=== PATIENT | female | born 1995 | race American Indian/Alaskan Native ===

== ENCOUNTER 2017-12-11 03:55 | Emergency (ER) | payer BC | END 2017-12-11 05:00 | disposition left against medical advice (07) | LOC: ED 03:55 | DX: R10.9 Unspecified abdominal pain (principal); Z53.21 Procedure and treatment not carried out due to patient leaving prior to being seen by health care provider ==

== ENCOUNTER 2019-08-04 15:04 | Outpatient (CLI) | payer BC, MEDICAID ==
[2019-08-04] MEDS ORDERED: LACTATED RINGERS 1,000 ML IV SCH (17:00)
[2019-08-04 17:19] LABS: Bilirubin,Urine NEG (Negative); Blood,Urine NEG (Negative); Color,Urine Yellow (Yellow); Mucus,Urine FEW /HPF; Protein,Urine <15 mg/dL mg/dL (Negative); Urobilinogen,Urine < 2.0 mg/dL (<2.0)
[2019-08-04 18:28] LABS: Amphetamine Screen,Urine PRESUMPTIVE NEGATIVE; Benzodiazepines Screen,Urine PRESUMPTIVE NEGATIVE; Cannabinoid Screen,Urine PRESUMPTIVE NEGATIVE; Cocaine Screen,Urine PRESUMPTIVE NEGATIVE; Methadone Screen,Urine PRESUMPTIVE NEGATIVE; Opiate Screen,Urine PRESUMPTIVE NEGATIVE
--- NOTE | 2019-08-04 19:26 | Ultrasound Report ---
US OB limited, US OB BPP wo non-stress INDICATION / CLINICAL INFORMATION: f/u fall. COMPARISON: None available. FINDINGS: Viable single intrauterine gestation in the cephalic presentation with heart rate 138 bpm. PRAVEENA is 13. The placenta is anterior, grade 2 with no demonstrated placental hemorrhage. Biophysical profile scored 8/8. IMPRESSION: 1. Viable single intrauterine gestation with no evidence of placental hemorrhage. Signer Name: Tulio Freeman MD Signed: 08/04/2019 7:22 PM Workstation Name: [id number]
[2019-08-04] MEDS ORDERED: TERBUTALINE 1 MG/1 ML INJ ONE (22:52)
[2019-08-04] MEDS ORDERED: TERBUTALINE 1 MG/1 ML INJ SUB-Q ONE (22:57)
[2019-08-04 23:34] VITALS: BP 122/68
--- NOTE | 2019-08-05 08:43 | Event Note ---
Date: 08/04/19 Triage note for 08/04/2019: Patient came in to L&D after falling down a few carpeted stairs at her home. She is 35 weeks, 5 days gestation. Patient of [facility]. States her EDC is 09/03/2019. No records available. Pt. states she has not had any problems during this ; she states she has no health problems. She states she does not take any medications other than vitamins. Patient denies any abuse. States she tripped and fell onto her back/buttocks on carpeted stairs. Did not hit her abdomen. Patient denies vaginal bleeding or leaking of fluid. Patient reports active movement. Patient denies abdominal pain. She reports occasional mild contractions. She states she has had [place] contractions for several weeks intermittently and she states they are no more frequent since she fell. Patient was monitored with EFM for 6 hours; category 1 heart rate tracing. No decelerations noted. Irregular mild contractions which resolved with IV hydration and one dose of terbutaline. Cervix closed, thick, and posterior. Ultrasound showed no signs of placental hemorrhage. BPP 8/8 and PRAVEENA 13 cm. Patient was discharged from L&D to the ED to be evaluated by ER doctor (she states she hit her head when she fell down the stairs). Discussed with patient daily movement counting, warning signs, signs of labor. Advised patient to follow up at [facility] this coming week. Patient voiced understanding of all instructions. Nurse to take patient to ED for further evaluation.
== END 2019-08-04 23:48 | disposition home or self-care (01) ==
LOC: TRG 15:04 → LD 16:29 → TRG 23:48
PROVIDERS: ATTEND Obstetrics & Gynecology
DX: O62.9 Abnormality of forces of labor, unspecified (principal); O26.893 Other specified pregnancy related conditions, third trimester; R52 Pain, unspecified; O99.513 Diseases of the respiratory system complicating pregnancy, third trimester; J45.909 Unspecified asthma, uncomplicated; Z3A.35 35 weeks gestation of pregnancy; W10.8XXA Fall (on) (from) other stairs and steps, initial encounter; Y92.009 Unspecified place in unspecified non-institutional (private) residence as the place of occurrence of the external cause; Y93.89 Activity, other specified; Y99.8 Other external cause status
CPT/HCPCS: 59025; 76815; 76819; 80307; 81001; 96360; 96361; 96372; J3105; J7120

== ENCOUNTER 2019-08-25 12:27 | Inpatient (IN) | payer MEDICAID ==
--- NOTE | 2019-08-25 15:45 | History and Physical Report ---
History of Present Illness Date of examination: 08/25/19 Chief complaint: Labor History of present illness: Pt is a 23yo BF EDC 09/02/19; EGA 38 6/7 weeks presents to L&D complaining of RUC's q 3-5 mins. She received care at [facility] since 9 weeks and course unremarkable except for + Chlamydia - treated during . records are available and GBS is Positive. Past History Past Medical History: asthma Past Surgical History: no surgical history Family/Genetic History: none Social history: no significant social history, single - Obstetrical History Expected Date of Delivery: 09/02/19 Actual Gestation: 39 Week(s) 0 Day(s) : 1 Medications and Allergies Allergies Allergy/AdvReac Type Severity Reaction Status Date / Time No Known Allergies Allergy Verified 10/18/13 21:10 Home Medications Medication Instructions Recorded Confirmed Last Taken Type Amoxicillin/K Clav Tab [Augmentin 1 tab PO BID #14 tab 03/23/16 Unknown Rx 875 mg] Ibuprofen [Motrin 600 MG tab] 600 mg PO Q8H PRN #20 tablet 03/23/16 Unknown Rx Review of Systems All systems: negative - Vital Signs Vital signs: Vital Signs Pulse BP 99 H 151/93 08/25/19 12:36 08/25/19 12:36 Temp Pulse Resp BP Pulse Ox 97.5 F L 82 123/83 08/25/19 12:46 08/25/19 13:40 08/25/19 13:40 - Physical Exam Breasts: Positive: deferred Abdomen: Positive: normal appearance Genitourinary (Female): Positive: normal external genitalia Uterus: Positive: enlarged Extremities: Positive: normal - Obstetrical FHR: category 1 Uterine Contraction Monitor Mode: External Cervical Dilatation: 4.5 (per nurse) Cervical Effacement Percentage: 70 (per nurse) station: -1 Uterine Contraction Pattern: Regular Uterine Tone Measurement Phase: Contraction Uterine Contraction Intensity: Moderate Results Result Diagrams: 08/25/19 17:00 All other labs normal. Assessment and Plan - Patient Problems (1) 38 weeks gestation of Onset Date: 08/25/19 Current Visit: Yes Status: Acute Plan to address problem: A: IUP @ 38 6/7 weeks in labor +GBS P: Admit to L&D for expectant vaginal delivery IV Ampicillin
[2019-08-25] MEDS ORDERED: TERBUTALINE 1 MG/1 ML INJ SUB-Q PRN (15:48)
[2019-08-25] MEDS ORDERED: ONDANSETRON 4 MG/2 ML INJ IV PRN (15:48)
[2019-08-25] MEDS ORDERED: AMPICILLIN/NS 2 GM/100 ML 2 GM/100 ML BAG IV ONE (15:48)
[2019-08-25] MEDS ORDERED: fentaNYL 100 MCG/2 ML INJ IV PRN (15:48)
[2019-08-25] MEDS ORDERED: TERBUTALINE 1 MG/1 ML INJ IVP PRN (15:48)
[2019-08-25] MEDS ORDERED: MINERAL OIL 30 ML ORAL LIQD PO PRN (15:48)
[2019-08-25] MEDS ORDERED: ePHEDrine SULFATE 50 MG/1 ML INJ IV PRN ×2 (15:48→20:57)
[2019-08-25] MEDS ORDERED: LIDOCAINE (2%) 20 MG/1 ML VIAL 20 ML MDV INFILTRATI ONE (15:48)
[2019-08-25] MEDS ORDERED: BUTORPHANOL 2 MG/1 ML INJ IV PRN (15:48)
[2019-08-25] MEDS ORDERED: OXYTOCIN 20 UNIT/1000ML DRIP 20 UNITS/1,000 ML BAG IV SCH (16:00)
[2019-08-25] MEDS ORDERED: OXYTOCIN DRIP 30 UNITS/500 ML BAG IV SCH ×2 (16:00)
[2019-08-25] MEDS: LACTATED RINGERS 1,000 ML IV SCH ×2 (17:23→19:21)
[2019-08-25 17:45] LABS: Hematocrit 32.7 % (30.3-42.9); Hemoglobin 10.9 gm/dl (10.1-14.3); Mean Corpuscular HGB Conc 33 % (30-34); Mean Corpuscular Volume 78 fl (79-97); Platelet Count 242 K/mm3 (140-440); Red Blood Count 4.22 M/mm3 (3.65-5.03); Red Cell Distribution Width 15.3 % (13.2-15.2)
--- NOTE | 2019-08-25 18:57 | Anesthesia Consultation ---
Anesthesia Consult and Med Hx Date of service: 08/25/19 - Airway Anesthetic Teeth Evaluation: Good ROM Head & Neck: Adequate Mental/Hyoid Distance: Adequate Mallampati Class: Class II Intubation Access Assessment: Good - Pulmonary Exam CTA: Yes - Cardiac Exam Cardiac Exam: RRR - Pre-Operative Health Status ASA Pre-Surgery Classification: ASA2, Emergency Proposed Anesthetic Plan: Epidural - Pulmonary Hx Asthma: Yes (2016) - Cardiovascular System Hx Hypertension: No - Central Nervous System Hx Seizures: No Hx Psychiatric Problems: No - Endocrine Hx Renal Disease: No Hx Hypothyroidism: No Hx Hyperthyroidism: No - Hematic Hx Anemia: No Hx Sickle Cell Disease: No - Other Systems Hx Alcohol Use: No
[2019-08-25] MEDS ORDERED: DEXMEDETOMIDINE 200 MCG/2 ML VIAL IV ONE (19:00)
--- NOTE | 2019-08-25 19:15 | Progress Note ---
Labor Epidural - Labor Epidural Start Time: 19:05 Stop Time: 19:10 Performed by:: FARRAH ADLER Procedure: Patient is requesting a laboring epidural for laboring pain. Patient IDed, H&P reviewed, all questions and concerns were answered, and consent was signed. Timeout was performed at bedside. Patient in sitting position. Sterile prep and drape was performed. [3] ml of 1% lidocaine skin wheal at L[3]- L [4]. 18- gauge Touhy epidural needle was advanced to loss of resistance with air technique. Negative CSF negative blood. Epidural catheter advanced to [15] centimeters. [-] Aspiration [-] test dose. Sterile dressing applied. Patient tolerated procedure.
[2019-08-25] MEDS ORDERED: AMPICILLIN/NS 1 GM/50 ML 1 GM/50 ML BAG IV SCH (19:52)
[2019-08-25] MEDS ORDERED: fentaNYL-BUPIV 2 MCG/ML-0.125% 200 MCG/100 ML BAG EPIDURAL ONE (20:51)
[2019-08-25] MEDS ORDERED: NALOXONE 2 MG/2 ML INJ IV PRN (20:57)
[2019-08-25] MEDS ORDERED: fentaNYL-BUPIV 2 MCG/ML-0.125% 200 MCG/100 ML BAG EPIDURAL SCH (21:00)
[2019-08-26] MEDS ORDERED: METHYLERGONOVINE MALEATE 0.2 MG/ML VIAL IM ONE (00:17)
--- NOTE | 2019-08-26 00:30 | Procedure Note ---
OB Delivery Note - Delivery Date of Delivery: 08/26/19 Surgeon: AIMEE RALPH Estimated blood loss: 300cc - Vaginal Delivery presentation: vertex Delivery position: OA Intrapartum events: mult.variable deceleratio Delivery induction: none Delivery augmentation: rupture of membranes, pitocin Delivery monitor: external FHT, external uterine Route of delivery: vacuum extraction Indicators for instrumentation: nonreassuring FHR tracing Delivery placenta: spontaneous Delivery cord: nuchal cord, 3 umbilical vessels Episiotomy: none Delivery laceration: 2nd degree (perineal) Delivery repair: vicryl Anesthesia: epidural Delivery comments: delivered OA with the aid of a vacuum, 3 pulls, 1 pop-off, and infant placed on Mom's chest for [id number] bonding and delayed cord clamping, cut by Dad - Infant A at 1 minute: 8 at 5 minutes: 9 Infant Gender: Male (3650gms)
[2019-08-26] MEDS ORDERED: PROMETHAZINE 25 MG RECT SUPP PR PRN (00:31)
[2019-08-26] MEDS ORDERED: PROMETHAZINE 25 MG TAB PO PRN (00:31)
[2019-08-26] MEDS ORDERED: ACETAMINOPHEN 325 MG TAB PO PRN (00:31)
[2019-08-26] MEDS ORDERED: WITCH HAZEL/ GLYCERIN PAD TP PRN (00:31)
[2019-08-26] MEDS ORDERED: MAGNESIUM HYDROXIDE (MOM) ORAL LIQD UDC PO PRN (00:31)
[2019-08-26] MEDS ORDERED: diphenhydrAMINE 25 MG CAP PO PRN (00:31)
[2019-08-26] MEDS ORDERED: BENZOCAINE/MENTHOL 20/0.5% TOP SPRAY 56 GM TP PRN (00:31)
[2019-08-26] MEDS ORDERED: ONDANSETRON 4 MG/2 ML INJ IV PRN (00:31)
[2019-08-26] MEDS ORDERED: HYDROcodone/ACETAMINOPHEN 5-325 MG TAB PO PRN (00:31)
[2019-08-26] MEDS ORDERED: LANOLIN/ZINC/DIMETHICONE (LANSINOH) 7 GM TP PRN (00:31)
[2019-08-26] MEDS ORDERED: OXYTOCIN 20 UNIT/1000ML DRIP 20 UNITS/1,000 ML BAG IV SCH (01:00)
[2019-08-26] MEDS: IBUPROFEN 600 MG TAB PO SCH ×4 (02:20→17:08)
[2019-08-26] MEDS: SENNOSIDES/DOCUSATE SODIUM 8.6/50 MG TAB PO SCH ×2 (10:41→17:09)
[2019-08-26] MEDS: DOCUSATE SODIUM 100 MG CAP PO SCH (10:41)
[2019-08-26] MEDS: PRENATAL VIT27-FE FUMARATE-FOLIC ACID VIT TAB PO SCH (10:41)
[2019-08-26] MEDS: FERROUS SULFATE 325 MG TAB PO SCH (10:41)
--- NOTE | 2019-08-26 15:12 | Post Anesthesia Evaluation ---
- Post Anesthesia Evaluation Patient Participated: Yes Airway Patent: Yes Stable Respiratory Function: Yes Temp > 96.8F: Yes Pain Manageable: Yes Adequeate Hydration: Yes Anesthesia Complications: No Block Receding Appropriately: Yes Patient on Ventilator: No
[2019-08-26 15:43] LABS: Hematocrit 25.9 % (30.3-42.9); Hemoglobin 8.5 gm/dl (10.1-14.3)
[2019-08-27] MEDS: SENNOSIDES/DOCUSATE SODIUM 8.6/50 MG TAB PO SCH ×2 (00:18→10:30)
[2019-08-27] MEDS: FERROUS SULFATE 325 MG TAB PO SCH ×2 (00:18→10:30)
[2019-08-27] MEDS: IBUPROFEN 600 MG TAB PO SCH ×2 (00:18→11:47)
[2019-08-27] MEDS ORDERED: MEASLES, MUMPS & RUBELLA 12,500 UNIT/0.5 ML VACCINE SUB-Q ONE (00:31)
[2019-08-27] MEDS ORDERED: TETANUS,DIPH,PERTUSS(ACELL) VACCINE 0.5 ML SYRINGE IM ONE (06:00)
[2019-08-27] MEDS: DOCUSATE SODIUM 100 MG CAP PO SCH (10:30)
[2019-08-27] MEDS: PRENATAL VIT27-FE FUMARATE-FOLIC ACID VIT TAB PO SCH (10:30)
--- NOTE | 2019-08-27 11:15 | Progress Note ---
Assessment and Plan - Patient Problems (1) 38 weeks gestation of Onset Date: 08/25/19 Current Visit: Yes Status: Resolved (2) (normal spontaneous vaginal delivery) Onset Date: 08/27/19 Current Visit: Yes Status: Resolved Plan to address problem: A: S/P - PPD #1 Doing well Asymptomatic anemia - stable P: May go home today. (3) Acute blood loss anemia Onset Date: 08/27/19 Current Visit: Yes Status: Resolved Subjective - Subjective Date of service: 08/27/19 Principal diagnosis: s/p - PPD #1 Interval history: Pt is feeling well without complaints. Bleeding improved. Patient reports: appetite normal, voiding normally, pain well controlled, flatus, ambulating normally, no dizzy ambulation, no nauseated [place]: doing well, nursing well, bottle feeding Objective - Vital Signs Latest vital signs: Vital Signs Temp Pulse Resp BP BP Pulse Ox 08/27/19 08:04 98.2 F 94 H 18 129/88 100 08/27/19 00:30 98.6 F 69 18 101/78 08/26/19 16:56 97.9 F 80 18 118/80 99 08/26/19 12:48 97.9 F 78 20 111/66 Intake and Output 08/26/19 08/27/19 08/27/19 22:59 06:59 14:59 Intake Total 300 Balance 300 Intake: Intake, Free Water 300 Other: # Voids Void 1 1 - Exam Breasts: Present: deferred Abdomen: Present: normal appearance, soft Uterus: Present: normal, firm, fundal height below umbilicus Extremities: Present: normal - Labs Labs: Abnormal lab results 08/26/19 Range/Units 15:25 Hgb 8.5 L (10.1-14.3) gm/dl Hct 25.9 L D (30.3-42.9) % Laboratory Tests 08/25/19 08/25/19 08/26/19 17:00 17:00 15:25 WBC 9.8 RBC 4.22 Hgb 10.9 8.5 L Hct 32.7 25.9 L D MCV 78 L MCH 26 L MCHC 33 RDW 15.3 H Plt Count 242 Blood Type A POSITIVE Antibody Screen Negative
--- NOTE | 2019-08-27 12:43 | Discharge Summary ---
Providers - Providers Date of Admission: 08/25/19 12:28 Date of discharge: 08/27/19 Attending physician: AIMEE RALPH Primary care physician: AIMEE RALPH Hospitalization Reason for admission: active labor, IUP at term Delivery: Episiotomy: none Laceration: 2nd degree (perineal) Incision: normal Other procedures: none complications: none Discharge diagnosis: IUP at term delivered [place] baby: male Hospital course: Unremarkable. Condition at discharge: Good Disposition: DC-01 TO HOME OR SELFCARE - Discharge Diagnoses (1) 38 weeks gestation of Status: Resolved (2) (normal spontaneous vaginal delivery) Status: Resolved (3) Acute blood loss anemia Status: Resolved Plan - Discharge Medications Prescriptions: Benzocaine/Menthol [Dermoplast] 1 spray TP PRN PRN #1 can PRN Reason: Episiotomy Pain Ferrous Sulfate [Feosol 325 MG tab] 325 mg PO BID #60 tablet Ibuprofen [Motrin 600 MG tab] 600 mg PO Q6HR #30 tablet Vit-Fe Fumar-FA [ Vitamin] 1 each PO QDAY #30 tablet - Provider Discharge Summary Activity: routine, no sex for 6 weeks, no heavy lifting 4 weeks, no strenuous exercise Diet: routine Instructions: routine Additional instructions: [] Smoking cessation referral if applicable(refer to patient education folder for contact #) [] Refer to [facility]'s [facility] Booklet Call your doctor immediately for: * Fever > 100.5 * Heavy vaginal bleeding ( >1 pad per hour) * Severe persistent headache * Shortness of breath * Reddened, hot, painful area to leg or breast * Drainage or odor from incision. * Keep incision clean and dry at all times and follow doctor's instructions regarding bathing/showering - Follow up plan Follow up: AIMEE RALPH MD [Primary Care Provider] - 6 Weeks MOR QUINTERO CNM [Advanced Practice Nurse] - 6 Weeks
[2019-08-27 16:56] VITALS: BP 127/86
== END 2019-08-27 16:40 | disposition home or self-care (01) | DRG 775 ==
LOC: TRG 12:27 → LD 12:28 → TRG 12:29 → LD 12:29 → OB 08-26 02:23
PROVIDERS: ADMIT Obstetrics & Gynecology; ATTEND Obstetrics & Gynecology
PROC: 10D07Z6 Extraction of Products of Conception, Vacuum, Via Natural or Artificial Opening (ICD-10-PCS; principal; 2019-08-26)
PROC: 0KQM0ZZ Repair Perineum Muscle, Open Approach (ICD-10-PCS; 2019-08-26)
PROC: 3E0R3BZ Introduction of Anesthetic Agent into Spinal Canal, Percutaneous Approach (ICD-10-PCS; 2019-08-26)
PROC: 00HU33Z Insertion of Infusion Device into Spinal Canal, Percutaneous Approach (ICD-10-PCS; 2019-08-26)
PROC: 3E0234Z Introduction of Serum, Toxoid and Vaccine into Muscle, Percutaneous Approach (ICD-10-PCS; 2019-08-27)
PROC: 3E0134Z Introduction of Serum, Toxoid and Vaccine into Subcutaneous Tissue, Percutaneous Approach (ICD-10-PCS; 2019-08-27)
DX: O76 Abnormality in fetal heart rate and rhythm complicating labor and delivery (principal); O69.81X0 Labor and delivery complicated by cord around neck, without compression, not applicable or unspecified; O99.52 Diseases of the respiratory system complicating childbirth; J45.909 Unspecified asthma, uncomplicated; O99.824 Streptococcus B carrier state complicating childbirth; O70.1 Second degree perineal laceration during delivery; O99.02 Anemia complicating childbirth; D62 Acute posthemorrhagic anemia; Z37.0 Single live birth; Z3A.38 38 weeks gestation of pregnancy; Z23 Encounter for immunization; Z79.899 Other long term (current) drug therapy
CPT/HCPCS: 36415; 85014; 85018; 85027; 86850; 86900; 86901; 96372; G0378; A6250; J0290; J0595; J2210; J2590; J3490; J7120